=== PATIENT | male | born 1960 | race Two or more races ===

== ENCOUNTER 2022-10-10 17:17 | Emergency (ER) | payer OTHER ==
[~2022-10-10] VITALS: Ht 167.6 cm; Wt 109.0 kg
[2022-10-10 20:00] VITALS: BP 122/98
[2022-10-10] MEDS ORDERED: IBUPROFEN 600MG TABLET PO ONE (20:00)
== END 2022-10-10 20:20 | disposition home or self-care (01) ==
LOC: ER 17:17
DX: S99.912A Unspecified injury of left ankle, initial encounter (principal); W22.8XXA Striking against or struck by other objects, initial encounter; Y93.89 Activity, other specified; Y92.89 Other specified places as the place of occurrence of the external cause; Y99.8 Other external cause status; I10 Essential (primary) hypertension
CPT/HCPCS: 73600; 99283